=== PATIENT | female | born 1960 | race Caucasian/White ===

== ENCOUNTER → 2016-10-09 | Outpatient (CLI) | payer OTHER ==
[2016-10-09 16:35] LABS: Basophils % (A) 1 %; CHCM 32.2; Eosinophils # (A) 0.2 k/uL (0-0.7); Eosinophils % (A) 2 %; HDW 2.31; HGB 13.4 gm/dL (11.4-16.0); Luc # (Auto) 0.28; Luc % (Auto) 3; Lymphocytes # (A) 1.9 k/uL (1.0-4.8); Lymphocytes % (A) 22 %; MCH 33.6 pg (25.0-35.0); MCHC 32.5 g/dL (31.0-37.0); MCV 103.2 fL (80.0-100.0); Macrocytosis Slight; Monocytes # (A) 0.4 k/uL (0-1.0); Monocytes % (A) 5 %; Neutrophils # (A) 5.7 k/uL (1.3-7.7); Neutrophils % (A) 67 %; RBC 3.98 m/uL (3.80-5.40); RDW 13.1 % (11.5-15.5); WBC 8.5 k/uL (3.8-10.6); WBC (Perox) 9.11
== END ==
LOC: LABPAT 16:10
PROVIDERS: ATTEND Obstetrics & Gynecology
DX: N85.01 Benign endometrial hyperplasia (principal)
CPT/HCPCS: 85025

== ENCOUNTER 2016-10-16 08:21 | Day surgery (SDC) | payer OTHER ==
[2016-10-11 13:55] VITALS: BMI 47.7
--- NOTE | 2016-10-15 20:19 | HP ---
DATE OF ADMISSION: 10/15/2016. HISTORY: This is a 55-year-old 2, para 2 woman with complex endometrial hyperplasia with atypia found on endometrial biopsy done for postmenopausal bleeding. She is scheduled for diagnostic hysteroscopy and D&C for further tissue diagnosis and to rule out underlying malignancy. She had an ultrasound, which showed an enlarged uterus with a thickened endometrial stripe of 1.7 cm. ALLERGIES: NONE. MEDICATIONS: 1. Paxil 20 mg daily. 2. Synthroid 50 mcg daily. 3. Ziac 10/6.25 mg daily. 4. Zocor 20 mg daily. PAST MEDICAL HISTORY: Hypertension, hypothyroidism, and obesity. PAST SURGICAL HISTORY: Tubal ligation in 1983, appendectomy 1964. Past SYSTEMS LEAD history: She is a 2, para 2 with a history of 2 vaginal deliveries. SOCIAL HISTORY: She is . Negative for tobacco, alcohol and drug use. FAMILY HISTORY: Positive for hypertension in multiple family members. REVIEW OF SYSTEMS: Positive for weight gain. Negative for chest pain, shortness of breath, nausea, vomiting, diarrhea, constipation, bright red blood in the stool, unusual rash or neurologic symptoms. Positive for vaginal bleeding. PHYSICAL EXAMINATION: Blood pressure 142/82. Height 5 feet 6 inches, weight 296 pounds. In general, this is a pleasant, morbidly obese female in no obvious distress. HEENT exam is unremarkable with no palpable lymphadenopathy or thyromegaly. The lungs are clear to auscultation bilaterally and the heart is of regular rate and rhythm. The abdomen is obese, soft and nontender. The uterus is palpable and is approximately 12 to 14 week size. On pelvic examination, she has normal female external genitalia without lesions or irritation. On speculum examination, the cervix appears grossly normal without evidence of lesions or polyps. On bimanual examination, the uterus was enlarged, approximately 12 to 14 weeks size. ASSESSMENT: This is a 55-year-old 2, para 2 woman with postmenopausal bleeding and findings of complex endometrial hyperplasia with atypia. She is scheduled for diagnostic hysteroscopy and NovaSure endometrial ablation to rule out further underlying pathology. Risks and benefits of this procedure have been reviewed with the patient in the office. The risks include but are not limited to bleeding, transfusion, uterine perforation with possible injury to internal structures, infection and ongoing bleeding. The patient understands these risks and agrees to proceed. She is scheduled for the above-named procedure on 10/15/2016.
[~2016-10-16 08:21] MED LIST: DEXAMETHASONE SOD PHOSPHATE 10 MG/ML 1 ML VIAL IV ONE; HYDROmorphone 1 MG/ML 1 ML SYRINGE IVP PRN; LACTATED RINGERS 1,000 ML IV SCH; LIDOCAINE 1% 20 ML VIAL (10MG/ML) FOR IV START INTRADERMA PRN; MIDAZOLAM 2 MG/2 ML VIAL IV PRN; ONDANSETRON 4 MG/2 ML VIAL IVP ONE; SCOPOLAMINE 1.5MG/72HR PATCH TRANSDERM ONE; ceFAZolin 3 GM in SODIUM CHLORIDE 0.9% 100 ML IVPB ONE
[2016-10-16] MEDS ORDERED: LACTATED RINGERS 1,000 ML IV ONE (09:01)
[2016-10-16] MEDS ORDERED: LIDOCAINE 1% 20 ML VIAL (10MG/ML) FOR IV START INTRADERMA ONE (09:04)
[2016-10-16] MEDS ORDERED: IV FLUID CONTINUATION 1,000 ML IV ONE ×3 (09:48→12:41)
[2016-10-16] MEDS: IV FLUID CONTINUATION 1,000 ML IV ONE ×2 (11:16→12:00)
[2016-10-16] MEDS ORDERED: LIDOCAINE 1% INJ 10MG/ML (20 ML MDV) ONE (11:25)
[2016-10-16] MEDS ORDERED: SUCCINYLCHOLINE CHLORIDE 100 MG/5 ML SYR IV ONE (11:25)
[2016-10-16] MEDS ORDERED: fentaNYL (PF) 50 MCG/ML 2 ML AMP ONE (11:25)
[2016-10-16] MEDS ORDERED: PROPOFOL 10 MG/ML 20 ML VIAL IV ONE (11:25)
[2016-10-16] MEDS ORDERED: MIDAZOLAM 2 MG/2 ML VIAL ONE (11:25)
[2016-10-16] MEDS ORDERED: LIDOCAINE 1%-EPI 1:100,000 20 ML VIAL SQ ONE (12:11)
--- NOTE | 2016-10-16 12:22 | P.OP ---
Date of Procedure: 10/16/16 Preoperative Diagnosis: #1 postmenopausal bleeding number #2 complex endometrial hyperplasia with atypia #3 morbid obesity #4 enlarged uterus Postoperative Diagnosis: Same Procedure(s) Performed: Diagnostic hysteroscopy with D&C Anesthesia: spinal Surgeon: Beatriz Jurado Estimated Blood Loss (ml): 25 IV fluids (ml): 500 Urine output (ml): 100 Pathology: other (Endometrial curettings) Condition: stable Disposition: PACU Operative Findings: Morbid obesity. Third degree rectocele. Enlarged uterus sounding to 14 cm. Description of Procedure: The patient was initially met in the preoperative holding area and all questions were answered. She did state she was having significant increase in her vaginal bleeding with passage of clots this morning. She was then taken to the operating room where general anesthetic was induced. She had a difficult airway and she was unable to be intubated. The initial procedure was therefore terminated. The patient was then counseled regarding her options which would include spinal anesthetic or an awake fiberoptic intubation. After discussion with the anesthesiologist she elected to proceed with spinal anesthetic. She was then taken back to the operating room where spinal anesthetic was administered. Once she was comfortable and the anesthetic was confirmed adequate she was positioned, prepped and draped in the dorsal lithotomy position. The bladder was drained for approximately 100 mL of clear urine. She was noted to have large clot adherent to the vulva and dark blood in the vaginal canal. Weighted speculum was placed in the vagina and the cervix was grasped anteriorly with a single-tooth tenaculum. Prior to this an exam under anesthetic was undertaken and the uterus was felt to be enlarged approximate 14 week size however this was limited secondary to the patient's large pannus. Tenaculum was placed anteriorly paracervical block with lidocaine plus epinephrine was placed. The uterus was sounded to 14 cm. The cervix was then sequentially dilated to allow for passage of the diagnostic hysteroscope. The hysteroscope was introduced and clots, debris and polypoid type tissue was noted. The hysteroscope was removed and the cervix was further dilated to allow for passage of the large sharp banjo curet. Curettage was then undertaken with a large amount of tissue obtained. Following curettage the cervix was observed and no active bleeding was noted. Instruments were then removed from the cervix and the vagina. The patient was then transported to the recovery area in stable condition. All counts reported to me to me as correct by the operating room staff. She did receive antibiotics preoperatively and had Vena dines on for DVT prevention.
[2016-10-16 12:48] VITALS: TEMP 97.6
[2016-10-16 13:01] VITALS: RESP 18
[2016-10-16 14:40] VITALS: BP 132/82; PULSE 81
== END 2016-10-16 15:23 | disposition home or self-care (01) ==
LOC: OR 08:21
PROVIDERS: ATTEND Obstetrics & Gynecology
DX: N85.02 Endometrial intraepithelial neoplasia [EIN] (principal); N95.0 Postmenopausal bleeding; N85.2 Hypertrophy of uterus; I10 Essential (primary) hypertension; E78.5 Hyperlipidemia, unspecified; E03.9 Hypothyroidism, unspecified; F39 Unspecified mood [affective] disorder; E66.01 Morbid (severe) obesity due to excess calories; Z68.42 Body mass index [BMI] 45.0-49.9, adult; Z79.1 Long term (current) use of non-steroidal anti-inflammatories (NSAID); Z79.899 Other long term (current) drug therapy; Z98.51 Tubal ligation status; Z82.49 Family history of ischemic heart disease and other diseases of the circulatory system
CPT/HCPCS: 58558; 81025; 88305; 84132; J2250; J1100; J0690; J2405; J2001; J3010; J0330; J2704

== ENCOUNTER → 2017-06-17 | Outpatient (CLI) | payer OTHER ==
--- NOTE | 2017-06-19 09:26 | MM ---
Reason for exam: screening (asymptomatic). Last mammogram was performed 2 years and 2 months ago. History: Patient is postmenopausal. Excisional biopsy of the left breast. Physical Findings: A clinical breast exam by your physician is recommended on an annual basis and results should be correlated with mammographic findings. MG 3D Screening Mammo W/Cad Bilateral CC and MLO view(s) were taken. XCCL view(s) were taken of the right breast. Prior study comparison: April 13, 2015, bilateral MG screening mammo w CAD. January 20, 2013, bilateral digital screening mammo w/CAD. There are scattered fibroglandular densities. Finding: There are stable calcifications in the right breast. No suspicious abnormality. No significant changes in finding since January 20, 2013 and April 13, 2015. ASSESSMENT: Benign, BI-RAD 2 RECOMMENDATION: Routine screening mammogram of both breasts in 1 year.
== END | disposition home or self-care (01) ==
LOC: RADMAMWWP 15:01
PROVIDERS: ATTEND Internal Medicine
DX: Z12.31 Encounter for screening mammogram for malignant neoplasm of breast (principal)
CPT/HCPCS: 77063; G0202

== ENCOUNTER 2018-01-07 06:04 | Inpatient (IN) | payer OTHER ==
[2018-01-07] MEDS ORDERED: DILTIAZEM 50 MG in SODIUM CHLORIDE 0.9% 40 ML IV STA (06:35)
[2018-01-07 06:47] LABS: Basophils % (A) 1 %; Eosinophils # (A) 0.2 k/uL (0-0.7); Eosinophils % (A) 2 %; HCT 40.4 % (34.0-46.0); HGB 13.7 gm/dL (11.4-16.0); Lymphocytes # (A) 2.4 k/uL (1.0-4.8); Lymphocytes % (A) 29 %; MCH 33.3 pg (25.0-35.0); MCHC 33.9 g/dL (31.0-37.0); MCV 98.2 fL (80.0-100.0); Mean Platelet Volume 7.2; Monocytes # (A) 0.5 k/uL (0-1.0); Monocytes % (A) 6 %; Neutrophils # (A) 5.1 k/uL (1.3-7.7); Neutrophils % (A) 61 %; Platelet Count 282 k/uL (150-450); RBC 4.12 m/uL (3.80-5.40); RDW 14.4 % (11.5-15.5); WBC 8.5 k/uL (3.8-10.6)
[2018-01-07 06:56] LABS: Partial Thromboplastin Time 22.1 sec (22.0-30.0); Prothrombin Time 9.8 sec (9.0-12.0)
[2018-01-07 06:58] LABS: ALT 36 U/L (9-52); AST 22 U/L (14-36); Albumin 3.8 g/dL (3.5-5.0); Alkaline Phosphatase 79 U/L (38-126); Anion Gap 15 mmol/L; Blood Urea Nitrogen 15 mg/dL (7-17); Calcium 9.5 mg/dL (8.4-10.2); Carbon Dioxide 23 mmol/L (22-30); Chloride 105 mmol/L (98-107); Glucose 107 mg/dL (74-99); Magnesium 1.9 mg/dL (1.6-2.3); Potassium 3.9 mmol/L (3.5-5.1); Sodium 143 mmol/L (137-145); Total Bilirubin 0.9 mg/dL (0.2-1.3); Total Protein 6.6 g/dL (6.3-8.2)
--- NOTE | 2018-01-07 07:05 | ED ---
Arrhythmia/Palpitations HPI - General Chief Complaint: Arrhythmia/Palpitations Stated Complaint: fast heart beat - chest pain Time Seen by Provider: 01/07/18 07:01 Source: patient, family Mode of arrival: ambulatory Limitations: no limitations - History of Present Illness Initial Comments: This patient is a 57-year-old woman who states that she was awakened from sleep today around 3:30 with feeling of racing heart, some shortness of breath, and a panic feeling. Patient states that she has had previous anxiety attacks. She states that it usually improves with time. This episode was not improving. She denies kamryn chest pain or diaphoresis. No nausea or vomiting. She states that symptoms are worse lying flat. MD Complaint: rapid heart beat Onset/Timin -: hour(s) Context: awoke with symptoms Associated Symptoms: shortness of breath - Related Data Home Medications Medication Instructions Recorded Confirmed Bisoprolol-Hctz 10-6.25 mg [Ziac 1 each PO DAILY 08/25/14 01/07/18 10-6.25 MG] PARoxetine [Paxil] 20 mg PO DAILY 08/25/14 01/07/18 Cholecalciferol [Vitamin D3] 4,000 unit PO DAILY 08/27/14 01/07/18 ALPRAZolam [Xanax] 0.25 mg PO DAILY PRN MDD . 10/11/16 01/07/18 Levothyroxine Sodium [Synthroid] 50 mcg PO DAILY 10/11/16 01/07/18 Simvastatin [Zocor] 20 mg PO DAILY 10/11/16 01/07/18 Allergies Allergy/AdvReac Type Severity Reaction Status Date / Time No Known Allergies Allergy Verified 01/07/18 07:23 Review of Systems ROS Statement: Those systems with pertinent positive or pertinent negative responses have been documented in the HPI. ROS Other: All systems not noted in ROS Statement are negative. Constitutional: Denies: fever, chills, weakness Respiratory: Reports: dyspnea. Denies: cough, wheezes Cardiovascular: Reports: palpitations, orthopnea. Denies: chest pain, dyspnea on exertion, edema, syncope Gastrointestinal: Denies: abdominal pain, nausea, vomiting Genitourinary: Denies: dysuria, hematuria Musculoskeletal: Denies: back pain Skin: Denies: rash Neurological: Denies: headache, weakness, numbness Psychiatric: Reports: anxiety Past Medical History Past Medical History: Hyperlipidemia, Hypertension, Skin Disorder, Thyroid Disorder Additional Past Medical History / Comment(s): psoriasis, occ palpitations, anemia, History of Any Multi-Drug Resistant Organisms: None Reported Past Surgical History: Appendectomy, Breast Surgery, Hysterectomy, Tubal Ligation Additional Past Surgical History / Comment(s): biopsy left breast, COLONOSCOPY Past Anesthesia/Blood Transfusion Reactions: Previous Problems w/ Anesthesia, Motion Sickness Additional Past Anesthesia/Blood Transfusion Reaction / Comment(s): STATES HEADACHE AFTER RECEIVING ANESTHESIA Past Psychological History: Anxiety Smoking Status: Never smoker Past Alcohol Use History: Occasional Past Drug Use History: None Reported - Past Family History Mother Family Medical History: No Reported History General Exam Limitations: no limitations General appearance: alert, in no apparent distress, obese Head exam: Present: atraumatic, normocephalic Eye exam: Present: normal appearance. Absent: scleral icterus, conjunctival injection ENT exam: Present: normal oropharynx Neck exam: Present: normal inspection, full ROM Respiratory exam: Present: normal lung sounds bilaterally. Absent: respiratory distress, wheezes, rales, rhonchi, stridor Cardiovascular Exam: Present: tachycardia, irregular rhythm, normal heart sounds. Absent: systolic murmur, diastolic murmur, rubs, gallop GI/Abdominal exam: Present: soft. Absent: distended, tenderness, guarding, rebound, mass Extremities exam: Present: normal inspection, normal capillary refill. Absent: pedal edema, calf tenderness Back exam: Present: normal inspection. Absent: CVA tenderness (R), CVA tenderness (L) Neurological exam: Present: alert Skin exam: Present: warm, dry, intact, normal color. Absent: rash, cyanosis, diaphoretic, erythema, petechiae, pallor, mottled Course Vital Signs 01/07/18 01/07/18 01/07/18 06:08 06:21 06:23 Temperature 98.6 F Pulse Rate 132 H 140 H Pulse Rate [ 140 H Steward Dishwasher ] Respiratory 20 16 Rate Blood Pressure 136/88 121/74 O2 Sat by Pulse 96 98 Oximetry 01/07/18 01/07/18 01/07/18 07:08 08:00 08:30 Temperature 98.6 F Pulse Rate 136 H 118 H 108 H Pulse Rate [ Steward Dishwasher ] Respiratory 120 H 18 18 Rate Blood Pressure 95/51 96/52 O2 Sat by Pulse 98 98 98 Oximetry EKG Findings - EKG Results: EKG: interpreted by ERMD, normal axis, normal QRS EKG shows: atrial fibrillation (With rate approximately 138 bpm) - Blocks, [place], Hypertrophy, ST Abn: Repolarization changes or abnormalities: nonspecific abnormality, ST segment, and/or T wave Medical Decision Making - Lab Data Result diagrams: 01/07/18 06:30 18 06:30 Lab Results 01/07/18 01/07/18 01/07/18 Range/Units 06:30 06:30 06:30 WBC 8.5 (3.8-10.6) k/uL RBC 4.12 (3.80-5.40) m/uL Hgb 13.7 (11.4-16.0) gm/dL Hct 40.4 (34.0-46.0) % MCV 98.2 (80.0-100.0) fL MCH 33.3 (25.0-35.0) pg MCHC 33.9 (31.0-37.0) g/dL RDW 14.4 (11.5-15.5) % Plt Count 282 (150-450) k/uL Neutrophils % 61 % Lymphocytes % 29 % Monocytes % 6 % Eosinophils % 2 % Basophils % 1 % Neutrophils # 5.1 (1.3-7.7) k/uL Lymphocytes # 2.4 (1.0-4.8) k/uL Monocytes # 0.5 (0-1.0) k/uL Eosinophils # 0.2 (0-0.7) k/uL Basophils # 0.0 (0-0.2) k/uL PT (9.0-12.0) sec INR (<1.2) APTT (22.0-30.0) sec Sodium 143 (137-145) mmol/L Potassium 3.9 (3.5-5.1) mmol/L Chloride 105 (98-107) mmol/L Carbon Dioxide 23 (22-30) mmol/L Anion Gap 15 mmol/L BUN 15 (7-17) mg/dL Creatinine 0.77 (0.52-1.04) mg/dL Est GFR (CKD-EPI)AfAm >90 (>60 ml/min/1.73 sqM) Est GFR (CKD-EPI)NonAf 85 (>60 ml/min/1.73 sqM) Glucose 107 H (74-99) mg/dL Calcium 9.5 (8.4-10.2) mg/dL Magnesium 1.9 (1.6-2.3) mg/dL Total Bilirubin 0.9 (0.2-1.3) mg/dL AST 22 (14-36) U/L ALT 36 (9-52) U/L Alkaline Phosphatase 79 (38-126) U/L Total Creatine Kinase 35 (30-135) U/L CK-MB (CK-2) 0.6 (0.0-2.4) ng/mL CK-MB (CK-2) Rel Index 1.7 Troponin I <0.012 (0.000-0.034) ng/mL Total Protein 6.6 (6.3-8.2) g/dL Albumin 3.8 (3.5-5.0) g/dL TSH 3.820 (0.465-4.680) mIU/L 01/07/18 Range/Units 06:30 WBC (3.8-10.6) k/uL RBC (3.80-5.40) m/uL Hgb (11.4-16.0) gm/dL Hct (34.0-46.0) % MCV (80.0-100.0) fL MCH (25.0-35.0) pg MCHC (31.0-37.0) g/dL RDW (11.5-15.5) % Plt Count (150-450) k/uL Neutrophils % % Lymphocytes % % Monocytes % % Eosinophils % % Basophils % % Neutrophils # (1.3-7.7) k/uL Lymphocytes # (1.0-4.8) k/uL Monocytes # (0-1.0) k/uL Eosinophils # (0-0.7) k/uL Basophils # (0-0.2) k/uL PT 9.8 (9.0-12.0) sec INR 1.0 (<1.2) APTT 22.1 (22.0-30.0) sec Sodium (137-145) mmol/L Potassium (3.5-5.1) mmol/L Chloride (98-107) mmol/L Carbon Dioxide (22-30) mmol/L Anion Gap mmol/L BUN (7-17) mg/dL Creatinine (0.52-1.04) mg/dL Est GFR (CKD-EPI)AfAm (>60 ml/min/1.73 sqM) Est GFR (CKD-EPI)NonAf (>60 ml/min/1.73 sqM) Glucose (74-99) mg/dL Calcium (8.4-10.2) mg/dL Magnesium (1.6-2.3) mg/dL Total Bilirubin (0.2-1.3) mg/dL AST (14-36) U/L ALT (9-52) U/L Alkaline Phosphatase (38-126) U/L Total Creatine Kinase (30-135) U/L CK-MB (CK-2) (0.0-2.4) ng/mL CK-MB (CK-2) Rel Index Troponin I (0.000-0.034) ng/mL Total Protein (6.3-8.2) g/dL Albumin (3.5-5.0) g/dL TSH (0.465-4.680) mIU/L Disposition Clinical Impression: Atrial fibrillation Disposition: ADMITTED IP TO THIS HOSP Condition: Good Referrals: Getachew Roberson MD [Primary Care Provider] - 1-2 days
[2018-01-07 07:13] LABS: Creatine Kinase 35 U/L (30-135)
--- NOTE | 2018-01-07 07:18 | XR ---
EXAMINATION TYPE: XR chest 1V portable DATE OF EXAM: 01/07/2018 COMPARISON: NONE HISTORY: Tachycardia. TECHNIQUE: Single frontal view of the chest is obtained. FINDINGS: There is no heart failure nor confluent pneumonic infiltrate. There are chest leads. Exam is limited by obesity. There are no definite hilar masses. Bony thorax is intact. IMPRESSION: No active cardiopulmonary disease.
[2018-01-07 07:25] LABS: Creatine Kinase MB 0.6 ng/mL (0.0-2.4); Troponin I <0.012 ng/mL (0.000-0.034)
[2018-01-07] MEDS ORDERED: DILTIAZEM 5 MG/1 ML (25ML VIAL) IV STA ×2 (07:52→09:22)
[2018-01-07] MEDS ORDERED: NITROGLYCERIN SL TABS 0.4 MG TAB SUBLINGUAL PRN (08:38)
[2018-01-07] MEDS ORDERED: HEPARIN SODIUM,PORCINE 5,000 UNIT/ML 1 ML VIAL IV ONE (08:38)
[2018-01-07] MEDS ORDERED: ALPRAZolam 0.25 MG TAB PO PRN (08:40)
[2018-01-07] MEDS: SODIUM CHLORIDE 0.9% 1,000 ML IV SCH ×2 (08:45→17:47)
[2018-01-07] MEDS ORDERED: BISOPROLOL-HCTZ 10-6.25 MG 1 EACH TAB PO SCH (09:00)
--- NOTE | 2018-01-07 10:57 | ECHOF ---
Referral Reason:New-onset atrial fibrillation MEASUREMENTS -------- HEIGHT: 170.2 cm WEIGHT: 131.5 kg BP: 96/52 IVSd: 1.5 cm (0.6 - 1.1) LVIDd: 3.4 cm (3.9 - 5.3) LVPWd: 1.7 cm (0.6 - 1.1) IVSs: 2.0 cm LVIDs: 2.4 cm LVPWs: 1.9 cm Ao Diam: 2.9 cm (2.0 - 3.7) LA Diam: 3.8 cm (2.7 - 3.8) RAP: 5.00 mmHg RVSP: 22.99 mmHg FINDINGS -------- Atrial fibrillation. This was a technically difficult study with suboptimal views. The left ventricular size is normal. There is moderate concentric left ventricular hypertrophy. O verall left ventricular systolic function is normal with, an EF between 55 - 60 %. The RV was not well visualized. The left atrium was not well visualized. The right atrium was not well visualized. Lumason used The aortic valve was not well visualized. There is trace mitral regurgitation. Trace tricuspid regurgitation present. The right ventricular systolic pressure, as measured by Dopp ler, is 22.99mmHg. The pulmonic valve was not well visualized. The pericardium is normal. CONCLUSIONS -------- 1. Atrial fibrillation. 2. This was a technically difficult study with suboptimal views. 3. The left ventricular size is normal. 4. There is moderate concentric left ventricular hypertrophy. 5. Overall left ventricular systolic function is normal with, an EF between 55 - 60 %. 6. The RV was not well visualized. 7. The left atrium was not well visualized. 8. The right atrium was not well visualized. 9. Lumason used 10. The aortic valve was not well visualized. 11. There is trace mitral regurgitation. 12. Trace tricuspid regurgitation present. 13. The right ventricular systolic pressure, as measured by Doppler, is 22.99mmHg. 14. The pulmonic valve was not well visualized. 15. The pericardium is normal. TOOL TECHNICIAN: Zehra Baez, [facility]
[2018-01-07] MEDS: HEPARIN SODIUM,PORCINE/D5W PMX 25,000 UNIT in DEXTROSE/WATER 1 500ML.BAG IV SCH (11:43)
[2018-01-07] MEDS ORDERED: METOPROLOL TARTRATE 25 MG TAB PO STA (12:30)
[2018-01-07] MEDS: PARoxetine 20 MG TAB PO SCH (12:50)
[2018-01-07] MEDS: ATORVASTATIN 10 MG TAB PO SCH (12:50)
[2018-01-07] MEDS: CHOLECALCIFEROL 1,000 UNIT TAB PO SCH (12:50)
[2018-01-07 13:11] LABS: Creatine Kinase 29 U/L (30-135)
[2018-01-07 13:23] LABS: Creatine Kinase MB 0.6 ng/mL (0.0-2.4); Troponin I <0.012 ng/mL (0.000-0.034)
[2018-01-07 13:52] VITALS: BMI 45.4
[2018-01-07] MEDS: DILTIAZEM 50 MG in SODIUM CHLORIDE 0.9% 40 ML IV SCH ×2 (17:47→21:28)
[2018-01-07] MEDS ORDERED: METOPROLOL TARTRATE 50 MG TAB PO STA (17:57)
[2018-01-07] MEDS: METOPROLOL TARTRATE 25 MG TAB PO SCH (17:58)
[2018-01-07 19:17] LABS: Creatine Kinase 27 U/L (30-135)
[2018-01-07 19:28] LABS: Creatine Kinase MB 0.4 ng/mL (0.0-2.4); Troponin I <0.012 ng/mL (0.000-0.034)
[2018-01-07] MEDS: HEPARIN SODIUM,PORCINE 5,000 UNIT/ML 1 ML VIAL IV PRN (21:27)
--- NOTE | 2018-01-07 23:16 | HP ---
HISTORY AND PHYSICAL ATTENDING PHYSICIAN: Dr. Kenroy Roberson. CHIEF COMPLAINT: Palpitations. HISTORY OF PRESENT ILLNESS: This 57-year-old female was woken up around 3 o'clock in the night with sudden onset of heart racing. She could feel her heart racing and felt weak. The patient had no associated symptoms of chest pain, shortness of breath, or dizziness. The patient feels fatigued and weak. The patient was brought in the emergency room. In the emergency room, the patient is noted to have a heart rate of anywhere from 130 to 140, 150 on telemetry. The patient's temperature is 98.6, respirations 20, blood pressure 136/88, pulse ox 96% on room air. HEENT: Normocephalic. The patient had no other symptoms. The patient is subsequently admitted to the hospital in view of this. PAST MEDICAL HISTORY: Significant for hypertension, hypothyroidism, on replacement therapy, history of colonic diverticulosis without complications, history of chronic anxiety, history of carcinoma of the uterus stage T1a, not requiring any chemotherapy or radiation, history of hyperlipidemia. No documented history of obstructive sleep apnea, but the patient is fairly obese. PAST SURGICAL HISTORY: Significant for appendectomy, tubal ligation, total abdominal hysterectomy with bilateral salpingo-oophorectomy. PERSONAL HISTORY: The patient is a nonsmoker. Alcohol, she has been drinking heavy lately. She had about 9 beers of alcohol the night before this happened. The patient says that she has been under increased grief and stress from her mother's loss and she has been drinking more lately. FAMILY MEDICAL HISTORY: Father at age of 88. He had . Mother at age 95. She had hypertensive cardiovascular disease and dementia. A brother 73 with history of Parkinson's. A brother 66 in good health. The patient has a daughter 34 in good health. Son 41 in good health. REVIEW OF SYSTEMS: NEURO: Denies any headaches, dizziness. PSYCH: Some anxiety. No depression. CARDIAC: Denies chest pain, angina. Does have palpitations. No shortness of breath. RESPIRATORY: Denies shortness of breath, cough, hemoptysis. GI: No nausea, vomiting, abdominal pain, diarrhea. : No symptoms of dysuria, hematuria, urgency, frequency. EXTREMITIES: Denies pain, edema. CONSTITUTIONAL: No fever, chills. Does feel fatigued. SKIN: No rashes. ENDOCRINE: No history of diabetes mellitus. PHYSICAL EXAMINATION: Pleasant female at present. Awake, alert, in no distress. Vital signs reveals temperature 98.5, pulse 146, respirations 18, blood pressure 103/58, pulse ox at 98% 2 L. HEENT: Normocephalic. Pupils reactive. Nostrils clear. Oral cavity is moist. Ears reveal no drainage. NECK: Reveals no JVD, carotid bruits or thyromegaly. CHEST: Clear to auscultation percussion. CARDIAC: Normal S1, S2 with no gallops, murmurs. Irregularly, irregular rhythm. ABDOMEN: Obese, soft. Bowel sounds present. Extremities reveal no edema. No tenderness. Neurologically awake, alert, oriented with well-coordinated movements both upper and lower extremities. Good pedal pulses all 4 extremities. LABORATORY ASSESSMENT: CBC which is normal. Chemistries normal. Random glucose 107. CPK is normal. The troponins are negative. Thyroid functions normal. EKG atrial fibrillation with rapid ventricular rate. Echocardiogram reveals atrial fibrillation changes. Valvular status is okay. The patient's left atrium at upper limit. Ejection fraction 55%-60%. Both atria are not well visualized. Aortic valve was not well visualized. There was trace mitral regurgitation. There is no evidence of pulmonary hypertension. Pericardium was normal. As ASSESSMENT: 1. Atrial fibrillation, new onset. Etiology undetermined, possibly precipitated by alcohol ingestion two nights before. 2. Hypertension. 3. Obesity. 4. Cannot rule out obstructive sleep apnea. 5. Hyperlipidemia on medical therapy. PLAN: The patient is stable. Continue present medical regimen. We will add beta tawanda. The patient is on Cardizem drip. The patient has been anticoagulated with heparin. The patient's prognosis remains guarded. MMODL / IJN: [id number] /
[2018-01-08 03:35] LABS: Cholesterol 169 mg/dL (<200); HDL Cholesterol 42 mg/dL (40-60); LDL Cholesterol,Calculated 84 mg/dL (0-99); Triglycerides 215 mg/dL (<150)
[2018-01-08] MEDS: HEPARIN SODIUM,PORCINE 5,000 UNIT/ML 1 ML VIAL IV PRN (03:47)
[2018-01-08] MEDS: DILTIAZEM 50 MG in SODIUM CHLORIDE 0.9% 40 ML IV SCH ×4 (03:48→19:01)
[2018-01-08] MEDS: LEVOTHYROXINE 50 MCG TAB PO SCH (06:42)
[2018-01-08] MEDS: HEPARIN SODIUM,PORCINE/D5W PMX 25,000 UNIT in DEXTROSE/WATER 1 500ML.BAG IV SCH ×2 (06:42→19:01)
[2018-01-08] MEDS: SODIUM CHLORIDE 0.9% 1,000 ML IV SCH ×2 (06:43→16:32)
[2018-01-08] MEDS: PARoxetine 20 MG TAB PO SCH (07:44)
[2018-01-08] MEDS: METOPROLOL TARTRATE 25 MG TAB PO SCH (07:44)
[2018-01-08] MEDS: ATORVASTATIN 10 MG TAB PO SCH (07:44)
[2018-01-08] MEDS ORDERED: ASPIRIN 325 MG TAB PO SCH (09:00)
[2018-01-08] MEDS: CHOLECALCIFEROL 1,000 UNIT TAB PO SCH (11:09)
[2018-01-08] MEDS ORDERED: METOPROLOL TARTRATE 25 MG TAB PO STA (11:27)
[2018-01-08] MEDS ORDERED: PROPAFENONE 150 MG TAB PO STA (15:13)
--- NOTE | 2018-01-08 15:14 | P.CRDCN ---
History of Present Illness Consult date: 01/08/18 Requesting physician: Getachew Roberson Consult reason: atrial fibrillation Chief complaint: Palpitations History of present illness: This is a pleasant 57-year-old female with history of hypertension, hypothyroidism, anxiety, carcinoma of the uterus, hyperlipidemia, who presented to the hospital yesterday morning after waking up at 3 AM with sudden onset of heart racing. She could feel her heart racing fast and she felt weak. She denies any dizziness or lightheadedness, no shortness of breath. In the emergency room an EKG was performed which showed atrial fibrillation with a rapid ventricular response. The patient had been initiated on IV Cardizem drip and IV heparin drip. According to the patient, she states that she recently lost one of her parents, and has been under a considerable amount of stress. She is drinking at least 9-10 alcoholic beverages per day, she does usually drink one or 2 in the evening however this has been increased significantly recently. Chest x-ray does not reveal any active cardiopulmonary disease. Blood pressure 110/60 with a heart rate in the 80s, 95% on room air. CBC normal , sodium 143, potassium 3.9, BUN 15, creatinine 0.7. Troponins negative 3. TSH normal. Cholesterol 169, triglycerides 2:15, LDL 84, HDL 42. At the time of my examination, patient continues to be in atrial fibrillation, heart rate in the 80s, on Cardizem drip at 5, the patient is also on metoprolol 50 twice a day. An echocardiogram with Doppler study was performed which revealed an ejection fraction of 55-60%. Moderate concentric LVH noted. Past Medical History Past Medical History: Hyperlipidemia, Hypertension, Skin Disorder, Thyroid Disorder Additional Past Medical History / Comment(s): psoriasis, occ palpitations, anemia, History of Any Multi-Drug Resistant Organisms: None Reported Past Surgical History: Appendectomy, Breast Surgery, Hysterectomy, Tubal Ligation Additional Past Surgical History / Comment(s): biopsy left breast, COLONOSCOPY Past Anesthesia/Blood Transfusion Reactions: Previous Problems w/ Anesthesia, Motion Sickness Additional Past Anesthesia/Blood Transfusion Reaction / Comment(s): STATES HEADACHE AFTER RECEIVING ANESTHESIA Past Psychological History: Anxiety Smoking Status: Never smoker Past Alcohol Use History: Occasional Past Drug Use History: None Reported - Past Family History Mother Family Medical History: No Reported History Medications and Allergies Home Medications Medication Instructions Recorded Confirmed Type Bisoprolol-Hctz 10-6.25 mg [Ziac 1 each PO DAILY 08/25/14 01/07/18 History 10-6.25 MG] PARoxetine [Paxil] 20 mg PO DAILY 08/25/14 01/07/18 History Cholecalciferol [Vitamin D3] 4,000 unit PO DAILY 08/27/14 01/07/18 History ALPRAZolam [Xanax] 0.25 mg PO DAILY PRN MDD . 10/11/16 01/07/18 History Levothyroxine Sodium [Synthroid] 50 mcg PO DAILY 10/11/16 01/07/18 History Simvastatin [Zocor] 20 mg PO DAILY 10/11/16 01/07/18 History Allergies Allergy/AdvReac Type Severity Reaction Status Date / Time No Known Allergies Allergy Verified 01/07/18 07:23 Physical Exam Vitals: Vital Signs Temp Pulse Resp BP Pulse Ox 01/08/18 11:31 98.1 F 85 18 111/67 95 01/08/18 08:00 98.8 F 68 18 122/79 95 01/08/18 04:00 98.0 F 86 18 117/71 95 01/08/18 00:00 98.4 F 108 H 18 111/77 96 01/07/18 20:00 98.4 F 92 18 117/81 98 01/07/18 16:00 110 H 18 105/59 97 Intake and Output 01/08/18 01/08/18 01/08/18 06:59 14:59 22:59 Intake Total 330.771 713.388 Balance 330.771 713.388 Intake: Intake, IV Titration 330.771 233.388 Amount Diltiazem 50 mg In Sodium 50 76.0 Chloride 0.9% 40 ml @ 10 mls/hr IV .Q5H [facility] Rx#: [id number] Heparin Sodium,Porcine/ 280.771 157.388 D5w Pmx 25,000 unit In Dextrose/Water 1 500ml. bag @ 7.6 UNITS/KG/HR 19. 99 mls/hr IV .Q24H [facility] Rx #:[id number] Oral 480 Other: Voiding Method Toilet Toilet # Voids 1 1 # Bowel Movements 1 Weight 134 kg PHYSICAL EXAMINATION: GENERAL: 57-year-old female in no apparent distress at the time of my examination. HEENT: Head is atraumatic, normocephalic. Pupils equal, round. Sclera anicteric. Conjunctiva are clear. Mucous membranes of the mouth are moist. Neck is supple. There is no elevated jugular venous pressure.] bruit is heard. HEART EXAMINATION: Heart S1 and irregularly irregular CHEST EXAMINATION: Lungs are clear to auscultation and precussion. No chest wall tenderness is noted on palpation or with deep breathing. ABDOMEN: Soft, nontender. Bowel sounds are heard. No organomegaly noted. EXTREMITIES: 2+ peripheral pulses with no evidence of peripheral edema and no calf tenderness noted. NEUROLOGIC patient is awake, alert and oriented -3. . Results 01/07/18 06:30 01/07/18 06:30 Cardiac Enzymes 01/07/18 Range/Units 17:56 CK-MB (CK-2) 0.4 (0.0-2.4) ng/mL Troponin I <0.012 (0.000-0.034) ng/mL Coagulation 01/07/18 01/08/18 01/08/18 Range/Units 17:56 02:49 09:23 APTT 25.5 26.9 40.5 H (22.0-30.0) sec Lipids 01/08/18 Range/Units 02:49 Triglycerides 215 H (<150) mg/dL Cholesterol 169 (<200) mg/dL HDL Cholesterol 42 (40-60) mg/dL Current Medications Generic Name Dose Route Start Last Admin Trade Name Freq PRN Reason Stop Dose Admin Alprazolam 0.25 mg 01/07/18 08:40 Xanax PO DAILY PRN Anxiety Aspirin 325 mg 01/08/18 09:00 01/08/18 07:44 Aspirin PO 325 mg DAILY [facility] Administration Atorvastatin Calcium 10 mg 01/07/18 09:00 01/08/18 07:44 Lipitor PO 10 mg DAILY [facility] Administration Cholecalciferol 4,000 unit 01/07/18 12:00 01/08/18 11:09 Vitamin D3 PO 4,000 unit 1200 [facility] Administration Heparin Sodium (Porcine) 0 unit 01/07/18 20:54 01/08/18 03:47 Heparin IV 4,000 unit PER PROTOCOL PRN Administration Low PTT Protocol Heparin Sodium/Dextrose 25,000 500 mls @ 19.99 mls/hr 01/07/18 08:45 11:06 unit/ IV Solution IV 15.6 units/kg/hr .Q24H [facility] 41.04 mls/hr Protocol Titration 7.6 UNITS/KG/HR Sodium Chloride 1,000 mls @ 100 mls/hr 01/07/18 08:45 01/08/18 06:43 Saline 0.9% IV 100 mls/hr .Q10H [facility] Administration Diltiazem HCl 50 mg/ Sodium 50 mls @ 10 mls/hr 01/07/18 17:00 01/08/18 11:24 Chloride IV 5 mls/hr .Q5H [facility] Infusion Levothyroxine Sodium 50 mcg 01/08/18 06:30 01/08/18 06:42 Synthroid PO 50 mcg 0630 [facility] Administration Metoprolol Tartrate 50 mg 01/08/18 21:00 Lopressor PO BID [facility] Nitroglycerin 0.4 mg 01/07/18 08:38 Nitrostat SUBLINGUAL Q5M PRN Chest Pain Paroxetine HCl 20 mg 01/07/18 09:00 01/08/18 07:44 Paxil PO 20 mg DAILY [facility] Administration Intake and Output 01/08/18 01/08/18 01/08/18 06:59 14:59 22:59 Intake Total 330.771 713.388 Balance 330.771 713.388 Intake: Intake, IV Titration 330.771 233.388 Amount Diltiazem 50 mg In Sodium 50 76.0 Chloride 0.9% 40 ml @ 10 mls/hr IV .Q5H [facility] Rx#: [id number] Heparin Sodium,Porcine/ 280.771 157.388 D5w Pmx 25,000 unit In Dextrose/Water 1 500ml. bag @ 7.6 UNITS/KG/HR 19. 99 mls/hr IV .Q24H [facility] Rx #:[id number] Oral 480 Other: Voiding Method Toilet Toilet # Voids 1 1 # Bowel Movements 1 Weight 134 kg 01/07/18 06:30 01/07/18 06:30 EKG Interpretations (text) EKG shows atrial fibrillation with rapid ventricular response. Assessment and Plan Plan: Assessment and plan #1 atrial fibrillation with rapid ventricular response, new onset for the patient. May of been investigated by excessive recent alcohol use. TSH 3.8. #2 hypertension #3 obesity #4 hyperlipidemia Plan Echocardiogram with Doppler study reveals normal left ventricular systolic function. We will give the patient one time dose of Rythmol an attempt to convert the patient to normal sinus rhythm. She continues to be symptomatic in her atrial fibrillation, complaining of palpitations. Patient has also been encouraged regarding the importance of EtOH cessation and the possibility of this being a trigger for her atrial fibrillation. Education is also been performed at the patient regarding the importance of anticoagulation for stroke prevention. We will check to see if the patient has coverage for EliSococo, if so this will be initiated. Further recommendations to follow. DNP note has been reviewed, I agree with a documented findings and plan of care. Patient was seen and examined.
[2018-01-08] MEDS: METOPROLOL TARTRATE 50 MG TAB PO SCH (21:18)
--- NOTE | 2018-01-08 23:05 | PN ---
PROGRESS NOTE CHIEF COMPLAINT: Re-evaluation. HISTORY OF PRESENT ILLNESS: This is a 57-year-old female who was admitted to the hospital with atrial fibrillation, rapid ventricular rate and persisting. The patient is in atrial fibrillation, somewhat better controlled rate this morning; however, she still runs at about 110 at times. The patient denies any symptoms. She feels a lot better than yesterday. Denies any chest pain, shortness of breath, palpitations. REVIEW OF SYSTEMS: NEURO: Denies any headaches, dizziness. PSYCH: History of chronic anxiety. CARDIAC: No chest pain, angina, palpitation. RESPIRATORY: Denies shortness of breath, cough. GI: No nausea, vomiting, abdominal pain, diarrhea. No bowel movement. : No symptoms of dysuria or hematuria. EXTREMITIES: No pain, edema. CONSTITUTIONAL: No fever, chills. PHYSICAL EXAMINATION: Pleasant female, 57 years of age. At present no distress. Vital signs reveal temperature 98.8, pulse 68, respirations 18, blood pressure 122/79, pulse ox of 95% on room air. HEENT: Normocephalic. NECK: No JVD. CHEST: Clear to auscultation. CARDIAC: Normal S1, S2 with no gallop. Systolic murmur 2/6, left sternal border. ABDOMEN: Soft. Bowel sounds present. EXTREMITIES: No edema. No tenderness. Neurologically awake, alert, oriented with well-coordinated movements. LABORATORY ASSESSMENT: Negative troponins. Triglycerides 215, cholesterol 169, LDL 84, HDL 42. ASSESSMENT: 1. Atrial fibrillation, new onset, better rate control. 2. History of hypertension. 3. Chronic anxiety. 4. Obesity. PLAN: The patient at present is stable. Continue present medical regimen. Have Cardiology evaluate the patient. Patient's condition was discussed with the patient. Prognosis guarded. MMODL / IJN: [id number] /
[2018-01-09] MEDS: DILTIAZEM 50 MG in SODIUM CHLORIDE 0.9% 40 ML IV SCH ×2 (03:04→12:01)
[2018-01-09] MEDS: LEVOTHYROXINE 50 MCG TAB PO SCH (07:19)
[2018-01-09] MEDS: HEPARIN SODIUM,PORCINE/D5W PMX 25,000 UNIT in DEXTROSE/WATER 1 500ML.BAG IV SCH (07:20)
[2018-01-09] MEDS ORDERED: APIXABAN 5 MG TAB PO SCH (09:00)
--- NOTE | 2018-01-09 09:04 | P.CRDCN ---
History of Present Illness Consult reason: atrial fibrillation History of present illness: Patient interviewed and examined 57-year-old female presenting with palpitations with documented atrial fibrillation with RVR that woke her up from her sleep Complains of palpitations but very brief. This was her first sustained episode Increased BMI, morbid obesity BMI 46.6 Hypertension Dyslipidemia on statins Hypothyroidism on replacement therapy TSH normal Awaiting sleep apnea assessment Regular alcohol use Uterine cancer stage 1A, status post hysterectomy Twelve-lead ECG in sinus rhythm shows a first-degree AV block. She responded to 600 mg of Rythmol Suggest Patient is back in sinus rhythm Her SABIHA VASC was at least 2 Anticoagulation is indicated Angiotensin receptor blockers for hypertension management Pill in the pocket technique with Rythmol 300 mg and metoprolol 50 mg on an as- needed basis for symptom medic atrial fibrillation Sleep apnea assessment Abstinence from alcohol, minimize alcohol consumption no daily alcohol consumption avoid binge drinking Weight reduction Outpatient 30 day event monitor and outpatient cardiac evaluation Patient go home today Past Medical History Past Medical History: Hyperlipidemia, Hypertension, Skin Disorder, Thyroid Disorder Additional Past Medical History / Comment(s): psoriasis, occ palpitations, anemia, History of Any Multi-Drug Resistant Organisms: None Reported Past Surgical History: Appendectomy, Breast Surgery, Hysterectomy, Tubal Ligation Additional Past Surgical History / Comment(s): biopsy left breast, COLONOSCOPY Past Anesthesia/Blood Transfusion Reactions: Previous Problems w/ Anesthesia, Motion Sickness Additional Past Anesthesia/Blood Transfusion Reaction / Comment(s): STATES HEADACHE AFTER RECEIVING ANESTHESIA Past Psychological History: Anxiety Smoking Status: Never smoker Past Alcohol Use History: Occasional Past Drug Use History: None Reported - Past Family History Mother Family Medical History: No Reported History Medications and Allergies Home Medications Medication Instructions Recorded Confirmed Type PARoxetine [Paxil] 20 mg PO DAILY 08/25/14 01/07/18 History Cholecalciferol [Vitamin D3] 4,000 unit PO DAILY 08/27/14 01/07/18 History ALPRAZolam [Xanax] 0.25 mg PO DAILY PRN MDD . 10/11/16 01/07/18 History Levothyroxine Sodium [Synthroid] 50 mcg PO DAILY 10/11/16 01/07/18 History Simvastatin [Zocor] 20 mg PO DAILY 10/11/16 01/07/18 History Apixaban [Eliquis] 5 mg PO BID 30 Days #60 tab 01/09/18 Rx Metoprolol Tartrate [Lopressor] 50 mg PO BID #60 tab 01/09/18 Rx Allergies Allergy/AdvReac Type Severity Reaction Status Date / Time No Known Allergies Allergy Verified 01/07/18 07:23 Physical Exam Vitals: Vital Signs Temp Pulse Resp BP Pulse Ox 01/09/18 08:30 98 F 74 20 115/56 96 01/09/18 03:29 97.2 F L 79 18 111/56 96 01/09/18 00:00 97.2 F L 65 18 120/52 96 01/08/18 20:00 98.1 F 69 18 122/56 100 01/08/18 16:00 97.8 F 94 18 106/63 95 01/08/18 11:31 98.1 F 85 18 111/67 95 Intake and Output 01/08/18 01/09/18 01/09/18 22:59 06:59 14:59 Intake Total 590.725 540.25 240 Balance 590.725 540.25 240 Intake: Intake, IV Titration 350.725 540.25 Amount Diltiazem 50 mg In Sodium 12.5 40.25 Chloride 0.9% 40 ml @ 10 mls/hr IV .Q5H [facility] Rx#: [id number] Heparin Sodium,Porcine/ 338.225 500 D5w Pmx 25,000 unit In Dextrose/Water 1 500ml. bag @ 7.6 UNITS/KG/HR 19. 99 mls/hr IV .Q24H [facility] Rx #:[id number] Oral 240 240 Other: Voiding Method Toilet Toilet # Voids 1 1 Weight 135 kg Results 01/07/18 06:30 01/07/18 06:30 Coagulation 01/08/18 01/08/18 01/09/18 Range/Units 09:23 15:49 00:29 APTT 40.5 H 44.8 H 48.7 H (22.0-30.0) sec Current Medications Generic Name Dose Route Start Last Admin Trade Name Freq PRN Reason Stop Dose Admin Alprazolam 0.25 mg 01/07/18 08:40 01/08/18 15:59 Xanax PO 0.25 mg DAILY PRN Administration Anxiety Apixaban 5 mg 01/09/18 09:00 01/09/18 09:02 Eliquis PO 5 mg BID [facility] Administration Atorvastatin Calcium 10 mg 01/07/18 09:00 01/08/18 07:44 Lipitor PO 10 mg DAILY [facility] Administration Cholecalciferol 4,000 unit 01/07/18 12:00 01/08/18 11:09 Vitamin D3 PO 4,000 unit 1200 [facility] Administration Levothyroxine Sodium 50 mcg 01/08/18 06:30 01/09/18 07:19 Synthroid PO 50 mcg 0630 [facility] Administration Metoprolol Tartrate 50 mg 01/08/18 21:00 01/08/18 21:18 Lopressor PO 50 mg BID [facility] Administration Nitroglycerin 0.4 mg 01/07/18 08:38 Nitrostat SUBLINGUAL Q5M PRN Chest Pain Paroxetine HCl 20 mg 01/07/18 09:00 01/08/18 07:44 Paxil PO 20 mg DAILY [facility] Administration Intake and Output 01/08/18 01/09/18 01/09/18 22:59 06:59 14:59 Intake Total 590.725 540.25 240 Balance 590.725 540.25 240 Intake: Intake, IV Titration 350.725 540.25 Amount Diltiazem 50 mg In Sodium 12.5 40.25 Chloride 0.9% 40 ml @ 10 mls/hr IV .Q5H [facility] Rx#: [id number] Heparin Sodium,Porcine/ 338.225 500 D5w Pmx 25,000 unit In Dextrose/Water 1 500ml. bag @ 7.6 UNITS/KG/HR 19. 99 mls/hr IV .Q24H [facility] Rx #:[id number] Oral 240 240 Other: Voiding Method Toilet Toilet # Voids 1 1 Weight 135 kg 01/07/18 06:30 01/07/18 06:30
[2018-01-09] MEDS: METOPROLOL TARTRATE 50 MG TAB PO SCH (09:08)
[2018-01-09] MEDS: ATORVASTATIN 10 MG TAB PO SCH (09:08)
[2018-01-09] MEDS: PARoxetine 20 MG TAB PO SCH (09:08)
--- NOTE | 2018-01-09 10:54 | PN ---
PROGRESS NOTE Sheila Khalil was seen last evening by Dr. Mckeon. I evaluated her and this is the followup note. After a detailed discussion about atrial fibrillation, she is doing fairly well. She converted to sinus rhythm. Her OR interval is mildly prolonged 230 milliseconds on the followup 12-lead ECG. She is afebrile, 98 degree Fahrenheit. Respirations are normal. Blood pressure is 115/56 mmHg. Head and neck examination are normal. Heart sounds are normal. Lungs are clear to auscultation. Extremities are warm, no edema. IMPRESSION: 1. Paroxysmal atrial fibrillation with RVR, symptomatic. 2. Hypertension. 3. Morbid obesity. 4. Hypothyroidism on replacement therapy. 5. Sleep apnea evaluation pending. 6. Dyslipidemia, on statins. SUGGEST: 1. Chads Vasc score is 2, female gender, and hypertension. She is being started on anticoagulation. 2. P.r.n. use of Rythmol 300 mg along with metoprolol 50 mg for episodes of atrial fibrillation. We will see her in followup and further cardiac workup will be performed thereafter. MMODL / IJN: [id number] /
[2018-01-09] MEDS ORDERED: PROPAFENONE 150 MG TAB PO PRN (11:47)
[2018-01-09] MEDS: SODIUM CHLORIDE 0.9% 1,000 ML IV SCH (12:01)
[2018-01-09] MEDS: CHOLECALCIFEROL 1,000 UNIT TAB PO SCH (13:57)
[2018-01-09 16:00] VITALS: BP 128/60; PULSE 72; RESP 20; TEMP 98.6
== END 2018-01-09 17:18 | disposition home or self-care (01) | DRG 309 ==
LOC: EC 06:04 → 6SEL 08:39
PROVIDERS: ADMIT Internal Medicine; ATTEND Internal Medicine
DX: I48.0 Paroxysmal atrial fibrillation (principal); Z68.42 Body mass index [BMI] 45.0-49.9, adult; E66.01 Morbid (severe) obesity due to excess calories; E78.5 Hyperlipidemia, unspecified; I10 Essential (primary) hypertension; F41.9 Anxiety disorder, unspecified; F32.9 Major depressive disorder, single episode, unspecified; I44.0 Atrioventricular block, first degree; G47.30 Sleep apnea, unspecified; E03.9 Hypothyroidism, unspecified; K57.30 Diverticulosis of large intestine without perforation or abscess without bleeding; L40.9 Psoriasis, unspecified; Z79.890 Hormone replacement therapy; Z79.899 Other long term (current) drug therapy; Z72.89 Other problems related to lifestyle; Z85.42 Personal history of malignant neoplasm of other parts of uterus; Z90.710 Acquired absence of both cervix and uterus; Z90.49 Acquired absence of other specified parts of digestive tract; Z90.79 Acquired absence of other genital organ(s); Z90.722 Acquired absence of ovaries, bilateral; Z98.51 Tubal ligation status; Z82.49 Family history of ischemic heart disease and other diseases of the circulatory system; Z82.0 Family history of epilepsy and other diseases of the nervous system
CPT/HCPCS: 36415; 71045; 80053; 80061; 82550; 82553; 83735; 84443; 84484; 85025; 85610; 85730; 93005; 93306; 96365; 96366; 96368; 96376; 99285

== ENCOUNTER → 2018-02-13 | Outpatient (CLI) | payer OTHER ==
--- NOTE | 2018-02-13 20:07 | CONS ---
CONSULTATION DATE OF SERVICE: 02/13/2018 This patient is a 57-year-old lady who has been evaluated in the sleep center for possible obstructive sleep apnea-hypopnea syndrome. HISTORY OF PRESENT ILLNESS/SLEEP-WAKE EVALUATION: Patient's usual sleep schedule is from around 3 a.m. until 9 a.m. to noon. Usually no problems with falling asleep, although she has a TV set in the bedroom. According to her , when she sleeps she has loud snoring and episodes of stopped breathing during sleep. Patient wakes up from sleep 2 times with nocturia. [place] Sleepiness Scale is 3. No history of hypnagogic hallucinations, sleep paralysis or cataplexy. PAST MEDICAL HISTORY: 1. Atrial fibrillation. 2. Hypertension. 3. Hypothyroidism. 4. Anxiety. 5. Hyperlipidemia. 6. Uterus cancer. PAST SURGICAL HISTORY: 1. Total hysterectomy in 2016. 2. Appendectomy in 1964. MEDICATIONS: 1. Eliquis. 2. Metoprolol. 3. Synthroid. 4. Paxil. 5. Zocor. 6. Vitamins, including vitamin D3. SOCIAL HISTORY: Negative for smoking or using alcohol. FAMILY HISTORY: Hypertension. REVIEW OF SYSTEMS: Awakenings from sleep. PHYSICAL EXAMINATION: GENERAL A pleasant 57-year-old lady without distress. VITAL SIGNS: BP 134/63, HR 80, RR 18, height 5 feet 6 inches, weight 294.9, BMI 47.6. Temperature 98.2. Oxygen saturation at room air 96%. HEENT: PERRLA, EOMI. Evaluation of oropharynx showed tongue protrudes midline; moderately low position of soft palate. NECK: Supple. No JVD. Thyroid is not palpable. Wide neck; 18-1/4 inches in circumference. LUNGS: Clear to percussion and to auscultation. Good air exchange. No wheezing or rhonchi. HEART: S1, S2 regular. No murmurs, gallops or rubs. ABDOMEN: Obese. EXTREMITIES : No clubbing or cyanosis. ROTOFORMER BACKTENDER: Awake, alert, and oriented X3. Cranial nerves 2 to 7 intact. There is no fasciculation or atrophy. noted. No focal deficits observed. IMPRESSION: 1. Snoring, witnessed episodes of stopped breathing during sleep, low position of soft palate, wide neck, awakenings from sleep; obstructive sleep apnea-hypopnea syndrome. 2. Obesity with body mass index of 47.6. 3. Sleep delay syndrome. 4. Hypertension. 5. History of atrial fibrillation. 6. Hypothyroidism. 7. Anxiety. 8. Hyperlipidemia. 9. Status post total hysterectomy for uterus cancer. 10.Status post appendectomy. PLAN: 1. Polysomnography for evaluation of patient's breathing during sleep. 2. CPAP/BiPAP titration if sleep study confirms obstructive sleep apnea-hypopnea syndrome. 3. Preferable position during sleep on the side. 4. No driving if patient feels any sleepiness. Patient is aware of civil and criminal liability for unsafe driving. 5. As much as possible exposure to the sunlight in the morning and less light in the evening to move sleep cycle to the earlier time. 6. I will see patient for follow-up visit to explain results of testing and following plan. Thank you very much for referring this patient for consultation. Sincerely, Jose Johnson MD, PhD, FAASM Diplomat of [place] [employer] [place] [employer] Health Occupations Teacher of [employer] [facility] [employer] MMODL / IJN: [id number] /
== END | disposition home or self-care (01) ==
LOC: SLEEP 14:33
PROVIDERS: ATTEND Internal Medicine
DX: G47.33 Obstructive sleep apnea (adult) (pediatric) (principal); E66.9 Obesity, unspecified; I10 Essential (primary) hypertension; I48.91 Unspecified atrial fibrillation; F41.9 Anxiety disorder, unspecified; E78.5 Hyperlipidemia, unspecified; E03.9 Hypothyroidism, unspecified; G47.21 Circadian rhythm sleep disorder, delayed sleep phase type; Z98.49 Cataract extraction status, unspecified eye; Z99.89 Dependence on other enabling machines and devices; Z79.899 Other long term (current) drug therapy
CPT/HCPCS: 99211

== ENCOUNTER → 2018-05-15 | Outpatient (CLI) | payer OTHER ==
--- NOTE | 2018-05-15 19:24 | PN ---
PROGRESS NOTE DATE OF SERVICE: 05/15/2018 57-year-old lady has been followed in Sleep Center for treatment of obstructive sleep apnea-hypopnea syndrome. Recently patient had diagnostic polysomnogram and CPAP titration. Diagnostic polysomnogram showed extremely severe obstructive sleep apnea-hypopnea syndrome and with titration, her respiration was under control. I discussed results of the sleep study with the patient in details. Subsequently, she was started on treatment with CPAP and she was able to use it every night, but had some discomfort with her mask. The patient does not have any more sleepiness during the day as she had before. Presently, her [place] Sleepiness Scale is in normal range 4. I checked information about her machine. Usage is 100% of the time more than 4 hours, average 5 hours 19 minutes. Machine at the maximal inspiratory pressure 20, minimal expiratory pressure 14 with a pressure support of 4. Apnea-hypopnea index is only 1.6, which is absolutely perfect. Sometimes significant leak from the mask. The patient using nasal mask. MEDICATIONS: Eliquis, metoprolol, Synthroid, Paxil, Zocor, vitamins including vitamin D3. PHYSICAL EXAM: Patient in no distress 133/66, HR 52, RR 16, weight 295, temp 98.0, oxygen saturation on room air 99%. Oropharynx: Low position of soft palate. ABDOMEN: Obese. Neck Supple, no JVD. Thyroid is not palpable. LUNGS Clear to percussion and to auscultation. Good air exchange. No wheezing or rhonchi. HEART S1, S2 regular. No murmurs, gallops, or rubs. ABDOMEN: Obese. Soft and nontender. Bowel sounds are present. No organomegaly appreciated. EXTREMITIES No clubbing or cyanosis. IMPORT/EXPORT AGENT Awake, alert, and oriented X3. Cranial nerves 2 to 7 intact. There is no fasciculation or atrophy. noted. No focal deficits observed. IMPRESSION: 1. Extremely severe obstructive sleep apnea-hypopnea syndrome. Apnea-hypopnea index in the range of 125 per hour on full control with BiPAP. The patient demonstrated 100% compliance with treatment, benefitting from treatment. 2. Obesity. 3. Very mild periodic limb movements during titration. 4. Sleep delay syndrome. 5. History of atrial fibrillation. 6. Hypothyroidism. 7. Anxiety. 8. Hyperlipidemia. 9. Status post total hysterectomy for uterus carcinoma. 10.Status post appendectomy. PLAN: 1. Patient will continue to use BiPAP equipment every night for the whole night. 2. Losing weight. 3. Sleep hygiene with regular time in bed for at least 8 hours. 4. We will try to fit the patient with a different style of the mask, which she will feel comfortable with. 5. No driving if feeling sleepiness. Thank you very much for allowing me to participate in management of your patient. Sincerely, Jose Johnson MD, PhD, FAASM Diplomat of [place] [employer] [place] [employer] Airborne And Air Delivery Specialist of [facility] [place] MMODL / IJN: [id number] /
== END ==
LOC: SLEEP 15:39
PROVIDERS: ATTEND Internal Medicine
DX: G47.33 Obstructive sleep apnea (adult) (pediatric) (principal); E66.9 Obesity, unspecified; I48.91 Unspecified atrial fibrillation; E03.9 Hypothyroidism, unspecified; F41.9 Anxiety disorder, unspecified; E78.5 Hyperlipidemia, unspecified; Z90.710 Acquired absence of both cervix and uterus; Z90.89 Acquired absence of other organs; Z85.41 Personal history of malignant neoplasm of cervix uteri; Z99.89 Dependence on other enabling machines and devices; Z79.01 Long term (current) use of anticoagulants; Z79.899 Other long term (current) drug therapy

== ENCOUNTER → 2019-01-30 | Outpatient (CLI) | payer BC ==
--- NOTE | 2019-02-03 08:02 | MM ---
Reason for exam: screening (asymptomatic). Last mammogram was performed 1 year and 7 months ago. History: Patient is postmenopausal. Excisional biopsy of the left breast. Physical Findings: A clinical breast exam by your physician is recommended on an annual basis and results should be correlated with mammographic findings. MG 3D Screening Mammo W/Cad Bilateral CC and MLO view(s) were taken. Prior study comparison: June 17, 2017, bilateral MG 3d screening mammo w/cad. April 13, 2015, bilateral MG screening mammo w CAD. The breast tissue is almost entirely fat. There is chronic nodularity in the left breast. No significant changes when compared with prior studies. ASSESSMENT: Benign, BI-RAD 2 RECOMMENDATION: Routine screening mammogram of both breasts in 1 year.
== END | disposition home or self-care (01) ==
LOC: RADMAMWWP 14:03
PROVIDERS: ATTEND Internal Medicine
DX: Z12.31 Encounter for screening mammogram for malignant neoplasm of breast (principal)
CPT/HCPCS: 77063; 77067

== ENCOUNTER → 2019-06-04 | Outpatient (CLI) | payer BC ==
--- NOTE | 2019-06-04 14:35 | SFUN ---
SLEEP CENTER FOLLOW UP NOTE DATE OF SERVICE: 06/04/2019 A 58-year-old lady who has been followed in the Sleep Center for treatment of obstructive sleep apnea-hypopnea syndrome. Patient continued to use her BiPAP equipment every night for the whole night. She lost around 55 pounds and she feels that the pressure is slightly high for now. [place] Sleepiness Scale today is only 1. I checked her BiPAP unit, maximal inspiratory pressure is 20 cm of water. Minimal expiratory pressure is 14 cm of water, pressure support is 4.0. MEDICATIONS: Eliquis, metoprolol, Synthroid, Paxil, Zocor, vitamins including vitamin D3. Reading from the machine showed usage 100% of the nights more than 4 hours with average usage is 7.7 hours per night. Average pressure 18.4/14.4. Leak is 41 L/minute. Apnea- hypopnea index only 1.1, which is absolutely perfect. PHYSICAL EXAM: Patient in no distress, BP 118/57, HR 57, RR 16, height 5 foot 5-1/2 inches, weight 246 pounds. Body mass index 40.3. The patient's weight last year was 294 pounds. Temperature 98.6, oxygen saturation at room air 99%. OROPHARYNX: Low position of soft palate, Mallampati 4. ABDOMEN: Obese NECK: Supple, no JVD. Thyroid is not palpable. LUNGS: Clear to percussion and to auscultation. Good air exchange. No wheezing or rhonchi. HEART: S1, S2 regular. No murmurs, gallops, or rubs. EXTREMITIES: No clubbing or cyanosis. GEOPOLITICS TEACHER: Awake, alert, and oriented X3. Cranial nerves 2 to 7 intact. There is no fasciculation or atrophy. noted. No focal deficits observed. . IMPRESSION: 1. Extremely severe obstructive sleep apnea-hypopnea syndrome. Patient demonstrated 100% compliance with treatment benefitting from treatment on BiPAP, feels that pressure is high. 2. Patient lost more than 50 pounds. Obesity present body mass index 40.3. 3. History of atrial fibrillation. 4. Hypothyroidism. 5. History of anxiety. 6. Hyperlipidemia. 7. Status post total hysterectomy for uterus CA. 8. Status post appendectomy. PLAN: 1. Patient will continue to use his BiPAP equipment every night for the whole night. 2. Decision to change in the regimen of BiPAP at the present time down to expiratory pressure of 9 without repeating titration at that moment. 3. Continue losing weight. 4. I will change the regimen in the BiPAP unit with the decreasing of minimal expiratory pressure to 9 cm of water. 5. No driving if feeling sleepiness. 6. I will maintain all necessary prescriptions for CPAP supplies. Thank you very thank you very much for allowing me to participate in management of your patient. Sincerely, Jose Johnson MD, PhD, FAASM Diplomat of [place] [employer] [place] [employer] Freelance Copywriter of [facility] [place] MMODL / IJN: [id number] /
== END | disposition home or self-care (01) ==
LOC: SLEEP 13:35
PROVIDERS: ATTEND Internal Medicine
DX: G47.33 Obstructive sleep apnea (adult) (pediatric) (principal); E66.9 Obesity, unspecified; Z68.41 Body mass index [BMI] 40.0-44.9, adult; E03.9 Hypothyroidism, unspecified; E78.5 Hyperlipidemia, unspecified; Z86.79 Personal history of other diseases of the circulatory system; Z86.59 Personal history of other mental and behavioral disorders; Z90.710 Acquired absence of both cervix and uterus; Z98.890 Other specified postprocedural states; Z79.01 Long term (current) use of anticoagulants

== ENCOUNTER 2020-03-04 07:05 | Day surgery (SDC) | payer BC ==
[2020-03-01 14:52] VITALS: BMI 34.7
[2020-03-04 07:18] VITALS: RESP 16; TEMP 97.5
[2020-03-04] MEDS ORDERED: LACTATED RINGERS 1,000 ML IV ONE (07:25)
[2020-03-04] MEDS ORDERED: LIDOCAINE 1% (10MG/ML) FOR IV START INTRADERMA ONE (07:26)
[2020-03-04] MEDS ORDERED: LIDOCAINE 1% INJ 10MG/ML (20 ML MDV) ONE (07:59)
[2020-03-04] MEDS ORDERED: PROPOFOL 10 MG/ML 20 ML VIAL IV ONE (07:59)
--- NOTE | 2020-03-04 08:15 | P.PCN ---
Date of Procedure: 03/04/20 Procedure(s) Performed: BRIEF HISTORY: Patient is a 59-year-old pleasant white female scheduled for an elective colonoscopy as a part of prior history of colon polyps. Last colonoscopy was 5 years ago. PROCEDURE PERFORMED: Colonoscopy. PREOPERATIVE DIAGNOSIS: History of colon polyps. IV sedation per Anesthesia. PROCEDURE: After informed consent was obtained, the patient, was brought into the endoscopy unit. IV sedation was administered by Anesthesia under continuous monitoring. Digital rectal examination was normal. Initially the Olympus CF-160 flexible video colonoscope was then inserted in the rectum, gradually advanced into the cecum without any difficulty. Careful examination was performed as the scope was gradually being withdrawn. Ileocecal valve and the appendiceal orifice were visualized and appeared normal. Prep was excellent. Mucosa of the cecum, ascending colon, transverse colon, descending colon, sigmoid colon, and rectum appeared normal. Scattered sigmoid diverticulosis. Retroflexion was performed in the rectum and no lesions were seen. The patient tolerated the procedure well. IMPRESSION: Normal-appearing colon from rectum to cecum with no evidence of colorectal neoplasia. Scattered sigmoid diverticulosis. RECOMMENDATIONS: Findings of this examination were discussed with the patient as well as a family. He was advised to have a repeat colonoscopy in 5 years from prior history of colon polyps.
[2020-03-04 08:33] VITALS: BP 134/60; PULSE 49
== END 2020-03-04 08:47 | disposition home or self-care (01) ==
LOC: ORWHC2ENDO 07:05
PROVIDERS: ATTEND Internal Medicine Gastroenterology
DX: Z12.11 Encounter for screening for malignant neoplasm of colon (principal); K57.30 Diverticulosis of large intestine without perforation or abscess without bleeding; Z86.010 Personal history of colon polyps; I10 Essential (primary) hypertension; E78.5 Hyperlipidemia, unspecified; I48.91 Unspecified atrial fibrillation; G47.33 Obstructive sleep apnea (adult) (pediatric); Z99.89 Dependence on other enabling machines and devices; E07.9 Disorder of thyroid, unspecified; L40.9 Psoriasis, unspecified; Z86.2 Personal history of diseases of the blood and blood-forming organs and certain disorders involving the immune mechanism; Z85.42 Personal history of malignant neoplasm of other parts of uterus; Z79.890 Hormone replacement therapy; Z79.899 Other long term (current) drug therapy
CPT/HCPCS: G0105; J2001; J2704; 45378

== ENCOUNTER → 2020-05-26 | Outpatient (CLI) | payer BC ==
--- NOTE | 2020-05-27 13:39 | MM ---
Reason for exam: screening (asymptomatic). Last mammogram was performed 1 year and 4 months ago. History: Patient is postmenopausal. Excisional biopsy of the left breast. Physical Findings: A clinical breast exam by your physician is recommended on an annual basis and results should be correlated with mammographic findings. MG 3D Screening Mammo W/Cad Bilateral CC and MLO view(s) were taken. Prior study comparison: January 30, 2019, bilateral MG 3d screening mammo w/cad. June 17, 2017, bilateral MG 3d screening mammo w/cad. There are scattered fibroglandular densities. There is chronic nodularity in the left breast. There is no discrete abnormality. ASSESSMENT: Benign, BI-RAD 2 RECOMMENDATION: Routine screening mammogram of both breasts in 1 year.
== END | disposition home or self-care (01) ==
LOC: RADMAMWWP 14:01
PROVIDERS: ATTEND Internal Medicine
DX: Z12.31 Encounter for screening mammogram for malignant neoplasm of breast (principal)
CPT/HCPCS: 77063; 77067

== ENCOUNTER → 2021-08-18 | Outpatient (CLI) | payer BC ==
--- NOTE | 2021-08-21 13:19 | MM ---
Reason for exam: screening (asymptomatic). Last mammogram was performed 1 year and 3 months ago. History: Patient is postmenopausal and history of other cancer. Excisional biopsy of the left breast. Physical Findings: A clinical breast exam by your physician is recommended on an annual basis and results should be correlated with mammographic findings. MG 3D Screening Mammo W/Cad Bilateral CC and MLO view(s) were taken. XCCL view(s) were taken of the right breast. Prior study comparison: May 26, 2020, bilateral MG 3d screening mammo w/cad. January 30, 2019, bilateral MG 3d screening mammo w/cad. There are scattered fibroglandular densities. No significant changes when compared with prior studies. ASSESSMENT: Negative, BI-RAD 1 RECOMMENDATION: Routine screening mammogram of both breasts in 1 year.
== END | disposition home or self-care (01) ==
LOC: RADMAMWWP 13:26
PROVIDERS: ATTEND Internal Medicine
DX: Z12.31 Encounter for screening mammogram for malignant neoplasm of breast (principal); Z78.0 Asymptomatic menopausal state
CPT/HCPCS: 77063; 77067

== ENCOUNTER → 2022-08-22 | Outpatient (CLI) | payer BC ==
--- NOTE | 2022-08-23 21:34 | MM ---
Reason for Exam: Screening (asymptomatic). Last screening mammogram was performed 12 month(s) ago. Patient History: Menarche at age 9. First Full-Term at age 15. Left ovary removed at age 53. Right ovary removed at age 53. Hysterectomy at age 53. Postmenopausal. Excisional Biopsy on the Left side. Risk Values: Zahida 5 year model risk: 1.5%. NCI Lifetime model risk: 6.3%. Prior Study Comparison: 01/30/2019 Bilateral Screening Mammogram, [facility]. 05/26/2020 Bilateral Screening Mammogram, [facility]. 08/18/2021 Bilateral Screening Mammogram, [facility]. Tissue Density: There are scattered fibroglandular densities. Findings: Analyzed By CAD. Chronic nodularity anterior lateral left breast. There is no suspicious group of microcalcifications or new suspicious mass in either breast. Overall Assessment: Benign, BI-RAD 2 Management: Screening Mammogram of both breasts in 1 year. 1. Patient should continue monthly self breast exams. 2. A clinical breast exam by your physician is recommended on an annual basis. 3. This exam should not preclude additional follow-up of suspicious palpable abnormalities. Electronically signed and approved by: Michael Vitale M.D. Radiologist
== END | disposition home or self-care (01) ==
LOC: RADMAMWWP 13:00
PROVIDERS: ATTEND Family Medicine
DX: Z12.31 Encounter for screening mammogram for malignant neoplasm of breast (principal); Z78.0 Asymptomatic menopausal state
CPT/HCPCS: 77063; 77067

== ENCOUNTER → 2023-09-05 | Outpatient (CLI) | payer BC ==
--- NOTE | 2023-09-09 08:52 | MM ---
Reason for Exam: Screening (asymptomatic). Last mammogram was performed 1 year(s) and 1 month(s) ago. Patient History: Menarche at age 9. First Full-Term at age 15. Left ovary removed at age 53. Right ovary removed at age 53. Hysterectomy at age 53. Postmenopausal. Excisional Biopsy on the Left side. Risk Values: Zahida 5 year model risk: 1.5%. NCI Lifetime model risk: 6.1%. Prior Study Comparison: 06/17/2017 Bilateral Screening Mammogram, [facility]. 01/30/2019 Bilateral Screening Mammogram, [facility]. 05/26/2020 Bilateral Screening Mammogram, [facility]. 08/18/2021 Bilateral Screening Mammogram, [facility]. 08/22/2022 Bilateral MG 3D screening mammo w/cad, [facility]. Tissue Density: The breast tissue is almost entirely fat. Findings: Analyzed By CAD. There is no suspicious group of microcalcifications or new suspicious mass. Overall Assessment: Negative, BI-RAD 1 Management: Screening Mammogram of both breasts in [address] [facility] will attempt to contact patient to return for supplemental views and ultrasound if indicated. Patient should continue monthly self-breast exams. A clinical breast exam by your physician is recommended on an annual basis. This exam should not preclude additional follow-up of suspicious palpable abnormalities. Note on Zahida scores and lifetime risk: 1. A Zahida score greater than 3% is considered moderate risk. If this is the case, consider specialist referral to assess eligibility for a risk reducing agent. 2. If overall lifetime risk for the development of breast cancer is 20% or higher, the patient may qualify for future screening with alternating mammogram and breast MRI. Electronically signed and approved by: Ron Perez DO
== END | disposition home or self-care (01) ==
LOC: RADMAMWWP 13:18
PROVIDERS: ATTEND Family Medicine
DX: Z12.31 Encounter for screening mammogram for malignant neoplasm of breast (principal); Z78.0 Asymptomatic menopausal state
CPT/HCPCS: 77063; 77067

== ENCOUNTER → 2024-01-16 | Outpatient (CLI) | payer MEDICARE, BC ==
[2024-01-16 15:50] VITALS: BP 108/64; PULSE 77; RESP 16; TEMP 98.2
--- NOTE | 2024-01-16 16:54 | P.SLEEP ---
History of Present Illness DATE: 01/16/2024 CONSULTATION/NEW PATIENT EVALUATION HISTORY OF PRESENT ILLNESS/SLEEP-WAKE EVALUATION: 66-year-old lady had been e valuated in the sleep center for patient has history of obstructive sleep apnea diagnosed in our obstructive sleep apnea hypopnea syndrome. Institution. Last time I saw patient in May 2019. Patient continued to use your BiPAP equipment every night. I checked BiPAP unit maximal inspiratory pressure 18, minimal expiratory pressure 8, pressure support 4, average pressure 15.4 over 11.4 cm of water. Patient using BiPAP equipment 100 nights with average usage 8.8 hours per night. Apnea hypopnea index is 1.8 which is normal SLEEP SCHEDULE: Usually sleep schedule from 2 AM until 1010:30 AM 7 days a week. FALLING ASLEEP: No significant problems with falling asleep he goes to bed late. DURING SLEEP: No snoring while using CPAP. Patient still wakes up with nocturia up to 3 times while using CPAP. No history of hypnogogical hallucinations, sleep paralysis, or cataplexy. DURING THE DAY/WAKE STATE: Patient denies significant excessive daytime sleepiness while on treatment with CPAP. [place] sleepiness scale is 3. Patient does not take naps. PAST MEDICAL HISTORY: Atrial fibrillation in the past, no episodes for last 5 years, hypothyroidism, anxiety. PAST SURGICAL HISTORY: Please see below. MEDICATIONS: Please see below. SOCIAL HISTORY: Please see below. FAMILY HISTORY: Hypertension. REVIEW OF SYSTEMS: No snoring on CPAP, no excessive daytime sleepiness. No fev ers. No double vision. No recent chest pain. No shortness of breath. No abdominal pain. No bleeding episodes. No blood in urine. No seizure episodes. PHYSICAL EXAMINATION: GENERAL: A pleasant patient without any distress. VITAL SIGNS: Please see below, weight 252.6 pounds, BMI 41.7. HEENT: PERRLA, EOMI. Evaluation of oropharynx showed tongue protrudes midline, low position of soft palate Mallampati 4. NECK: Supple. No JVD. Thyroid is not palpable. 17 inches in circumference. LUNGS: Clear to percussion and to auscultation. Good air exchange. No wheezing or rhonchi. HEART: S1, S2 regular. No murmurs, gallops or rubs. ABDOMEN: Soft and nontender. Bowel sounds are present. No organomegaly appreciated. EXTREMITIES: No clubbing or cyanosis. HYDRAULIC ELEVATOR CONSTRUCTOR: Awake, alert, and oriented x3. Cranial nerves 2 to 7 intact. There is no fasciculation or atrophy noted. No focal deficits observed. ASSESSMENT: 1. Obstructive sleep apnea hypopnea syndrome patient continued to use BiPAP equipment every night for the whole night. Normal respiration on BiPAP. No snoring on BiPAP. 2. Obesity, BMI 41.7. 3. Status post recent COVID-19. 4. History of atrial fibrillation in the past, no episodes for about 5 years. 5 hypothyroidism. 6 . History of anxiety. 7. Status post total hysterectomy for cancer in the past. 8. Status post appendectomy. PLAN: 1. Patient will continue to use BiPAP equipment every night for the whole night. 2. Prescription for all necessary BiPAP supplies including mask, tube, filters. BiPAP is old and noisy. Prescription to replace BiPAP unit. 3. Preferable position during sleep on the side. 4. No driving if patient feels any sleepiness. Patient is aware of civil and criminal liability for unsafe driving. 5. Sleep hygiene with regular sleep time for at least 7.5-8 hours. 6. Watching and losing weight. 7. Follow-up visit in 30 to 90 days after patient will get new BiPAP unit to document compliance with treatment, clinical response on treatment and [place] adjustments related to mask fitting pressure and humidification. Thank you very much for referring this patient for consultation. Sincerely, Jose Johnson MD, PhD, FAASM. Diplomat of [place] [employer], Sleep Medicine Board by [place] [employer] [place] [employer] Sterilizer Machine Operator of [facility] [place] Past Medical History Past Medical History: Atrial Fibrillation, Cancer, Hyperlipidemia, Hypertension, Skin Disorder, Sleep Apnea/CPAP/BIPAP, Thyroid Disorder Additional Past Medical History / Comment(s): hx psoriasis, occ palpitations, hx anemia, uterine cancer History of Any Multi-Drug Resistant Organisms: None Reported Past Surgical History: Appendectomy, Breast Surgery, Hysterectomy, Tubal Ligation Additional Past Surgical History / Comment(s): biopsy left breast, COLONOSCOPY, biopsy of labia area, D&C Past Anesthesia/Blood Transfusion Reactions: Previous Problems w/ Anesthesia, Motion Sickness Additional Past Anesthesia/Blood Transfusion Reaction / Comment(s): diff intubation for D&C.. Past Psychological History: Anxiety Smoking Status: Never smoker Past Alcohol Use History: None Reported Past Drug Use History: None Reported - Past Family History Mother Family Medical History: No Reported History Medications and Allergies Home Medications Medication Instructions Recorded Confirmed Type PARoxetine [Paxil] 20 mg PO DAILY 08/25/14 01/16/24 History Cholecalciferol [Vitamin D3 (25 4,000 unit PO DAILY 08/27/14 01/16/24 History Mcg = 1000 Iu)] ALPRAZolam [Xanax] 0.25 mg PO DAILY PRN MDD . 10/11/16 03/04/20 History Levothyroxine Sodium [Synthroid] 50 mcg PO DAILY 10/11/16 01/16/24 History Simvastatin [Zocor] 20 mg PO DAILY 10/11/16 01/16/24 History Propafenone [Rythmol] 300 mg PO ONCE PRN #10 tab 01/09/18 03/04/20 Rx Metoprolol Tartrate [Lopressor] 25 mg PO BID 03/01/20 01/16/24 History Allergies Allergy/AdvReac Type Severity Reaction Status Date / Time No Known Allergies Allergy Verified 03/01/20 14:43 Physical Exam Vitals: Vital Signs Temp Pulse Resp BP Pulse Ox 01/16/24 15:48 98.2 F 77 16 108/64 96 Intake and Output 01/16/24 01/16/24 01/16/24 06:59 14:59 22:59 Other: Weight 114.305 kg Sleep Note - Sleep Data ESS Total: 3 - Sleep Note Sleep Note: Temperature: 98.2 F Pulse Rate: 77 Respiratory Rate: 16 Blood Pressure: 108/64 SpO2: 96 Height: 5 ft 5 in Weight: 114.305 kg BMI: Neck Circumference: 17
== END ==
LOC: 3 N SLEEP 15:22
PROVIDERS: ATTEND Internal Medicine
DX: G47.33 Obstructive sleep apnea (adult) (pediatric) (principal); E66.9 Obesity, unspecified; E03.9 Hypothyroidism, unspecified; I48.91 Unspecified atrial fibrillation; F41.9 Anxiety disorder, unspecified; Z79.01 Long term (current) use of anticoagulants; Z90.49 Acquired absence of other specified parts of digestive tract; Z90.710 Acquired absence of both cervix and uterus; Z68.41 Body mass index [BMI] 40.0-44.9, adult; Z86.16 Personal history of COVID-19; Z90.89 Acquired absence of other organs; Z79.890 Hormone replacement therapy
CPT/HCPCS: 99211

== ENCOUNTER → 2024-11-20 | Outpatient (CLI) | payer MEDICARE, BC ==
--- NOTE | 2024-11-23 07:11 | MM ---
Reason for Exam: Screening (asymptomatic). Last mammogram was performed 1 year(s) and 2 month(s) ago. Patient History: Menarche at age 9. First Full-Term at age 15. Left ovary removed at age 53. Right ovary removed at age 53. Hysterectomy at age 53. Postmenopausal. Excisional Biopsy on the Left side. Risk Values: Zahida 5 year model risk: 1.6%. NCI Lifetime model risk: 5.9%. Prior Study Comparison: 08/18/2021 Bilateral Screening Mammogram, [facility]. 08/22/2022 Bilateral MG 3D screening mammo w/cad, [facility]. 09/05/2023 Bilateral MG 3D screening mammo w/cad, [facility]. Tissue Density: There are scattered areas of fibroglandular density. Findings: Analyzed By CAD. Benign-appearing bilateral axillary lymph nodes are redemonstrated. There is no suspicious group of microcalcifications or new suspicious mass in either breast. Overall Assessment: Negative, BI-RAD 1 Management: Screening Mammogram of both breasts in 1 year. . Patient should continue monthly self-breast exams. A clinical breast exam by your physician is recommended on an annual basis. This exam should not preclude additional follow-up of suspicious palpable abnormalities. Note on Zahida scores and lifetime risk: 1. A Zahida score greater than 3% is considered moderate risk. If this is the case, consider specialist referral to assess eligibility for a risk reducing agent. 2. If overall lifetime risk for the development of breast cancer is 20% or higher, the patient may qualify for future screening with alternating mammogram and breast MRI. [facility], , 11/23/2024 7:07 AM. Electronically signed and approved by: Will Tomas M.D.
== END | disposition home or self-care (01) ==
LOC: RADMAMWWP 15:36
PROVIDERS: ATTEND Family Medicine
DX: Z12.31 Encounter for screening mammogram for malignant neoplasm of breast (principal); R92.323 Mammographic fibroglandular density, bilateral breasts; Z78.0 Asymptomatic menopausal state
CPT/HCPCS: 77063; 77067